=== PATIENT | female | born 2000 | race Caucasian/White ===

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

== ENCOUNTER 2019-01-15 17:27 | Outpatient (CLI) | payer MEDICAID | END 2019-01-15 17:45 | disposition home or self-care (01) | LOC: LDOP 17:27 | PROVIDERS: ATTEND Obstetrics & Gynecology | DX: O26.899 Other specified pregnancy related conditions, unspecified trimester (principal); R55 Syncope and collapse; Z3A.00 Weeks of gestation of pregnancy not specified | CPT/HCPCS: 99201; 99211; G0463 ==

== ENCOUNTER 2019-05-30 09:03 | Inpatient (IN) | payer MEDICAID ==
[~2019-05-30] VITALS: Ht 168.9 cm; Wt 90.0 kg
[2019-05-31] MEDS ORDERED: OXYTOCIN 30U/ 0.9% NaCL 500ML 500 ML IV ONE (05:26)
[2019-05-31] MEDS ORDERED: OXYTOCIN 30U/ 0.9% NaCL 500ML 500 ML IV PRN (05:26)
[2019-05-31] MEDS ORDERED: D5%-LACTATED RINGERS 1,000 ML IV SCH (05:26)
[2019-05-31] MEDS ORDERED: SODIUM CITRATE/CITRIC ACID 30 ML UDC PO PRN (05:30)
[2019-05-31] MEDS ORDERED: ONDANSETRON 2MG/ML, 2ML IVPush PRN ×2 (05:30→21:00)
[2019-05-31] MEDS ORDERED: METOCLOPRAMIDE 5 MG/ML, 2ML IVPush PRN (05:30)
[2019-05-31] MEDS ORDERED: TERBUTALINE 1 MG/ML, 1ML IVPush PRN (05:30)
[2019-05-31] MEDS ORDERED: CALCIUM CARBONATE 500 MG TAB.CHEW PO PRN (05:30)
[2019-05-31] MEDS ORDERED: FENTANYL PF 100 MCG/2ML IV PRN (05:30)
[2019-05-31] MEDS ORDERED: TERBUTALINE 1 MG/ML, 1ML SQ PRN (05:30)
[2019-05-31] MEDS ORDERED: MISOPROSTOL 25 MCG TABLET ONE ×2 (05:31→11:32)
[2019-05-31] MEDS ORDERED: NEWBORN KIT ONE (05:31)
[2019-05-31] MEDS ORDERED: OXYTOCIN 30U/ 0.9% NaCL 500ML 500 ML ONE ×2 (05:32→18:53)
[2019-05-31] MEDS: LACTATED RINGERS 1,000 ML IV SCH ×5 (05:45→23:29)
[2019-05-31] MEDS ORDERED: MISOPROSTOL 25 MCG TABLET VG PRN (06:00)
[2019-05-31 06:01] VITALS: BP 124/81
[2019-05-31 06:05] LABS: BASOPHILS # (AUTO) 0.04 x10^3/uL (0-0.3); BASOPHILS % (AUTO) 0 % (0-1); EOSINOPHILS # (AUTO) 0.14 x10^3/uL (0-0.8); EOSINOPHILS % (AUTO) 1 % (1-7); LYMPHOCYTES # (AUTO) 2.59 x10^3/uL (1-6.1); LYMPHOCYTES % (AUTO) 22 % (22-44); MD NO; MEAN CORPUSCULAR HEMOGLOBIN 30.8 pg (27.0-34.8); MEAN CORPUSCULAR HGB CONC 33.9 g/dL (32.4-35.8); MEAN CORPUSCULAR VOLUME 90.8 fL (80-100); MEAN PLATELET VOLUME 8.4 fL (7.4-10.4); MONOCYTES # (AUTO) 0.79 x10^3/uL (0-1.4); MONOCYTES % (AUTO) 7 % (2-9); NEUTROPHILS # (AUTO) 8.35 x10^3/uL (1.8-8.0); NEUTROPHILS % (AUTO) 70 % (42-75); PLATELET COUNT 241 x10^3/uL (130-400); RED BLOOD COUNT 4.28 x10^6/uL (3.82-5.3)
[2019-05-31] MEDS ORDERED: Iron PO (06:40)
[2019-05-31] MEDS ORDERED: PREN1TAB60 PO (06:40)
[2019-05-31 12:25] LABS: AMPHETAMINE SCREEN, URINE Negative (Negative); BARBITURATE SCREEN, URINE Negative (Negative); BENZODIAZEPINE SCREEN, URINE Negative (Negative); CANNABINOID SCREEN, URINE Negative (Negative); COCAINE SCREEN, URINE Negative (Negative); METHADONE SCREEN, URINE Negative (Negative); OPIATE SCREEN, URINE Negative (Negative)
[2019-05-31] MEDS ORDERED: FENTANYL PF 100 MCG/2ML ONE ×2 (14:06→16:15)
[2019-05-31] MEDS: FENTANYL PF 100 MCG/2ML IVPush PRN ×2 (14:09→16:18)
[2019-05-31] MEDS ORDERED: FENTANYL/BUPIV./NS/PF 250 ML EPIDCONT SCH ×2 (18:13→20:47)
[2019-05-31] MEDS ORDERED: FENTANYL PF 500 MCG, BUPIVACAINE/PF 0.5%, 30ML 62.5 ML in SODIUM CHLORIDE 0.9% 177.5 ML EPIDCONT SCH (18:30)
[2019-05-31] MEDS ORDERED: BUPIVACAINE 0.25% ONE (20:22)
[2019-05-31] MEDS ORDERED: NALOXONE 0.4 MG/ML, 1ML IVPush PRN (21:00)
[2019-05-31] MEDS ORDERED: LACTATED RINGERS 1,000 ML IVBOLUS PRN (21:00)
[2019-05-31] MEDS ORDERED: DIPHENHYDRAMINE 50 MG/ML, 1ML IVPush PRN (21:00)
[2019-05-31] MEDS ORDERED: EPHEDRINE 50 MG/ML, 1ML IVPush PRN (21:00)
[2019-05-31] MEDS ORDERED: TERBUTALINE 1 MG/ML, 1ML ONE (23:40)
[2019-06-01] MEDS: LACTATED RINGERS 1,000 ML IV SCH ×2 (05:26→12:47)
[2019-06-01] MEDS: OXYTOCIN 30U/ 0.9% NaCL 500ML 500 ML IV SCH ×5 (08:36→14:20)
[2019-06-01] MEDS ORDERED: OXYTOCIN 30U/ 0.9% NaCL 500ML 500 ML IV SCH (08:36)
[2019-06-01] MEDS ORDERED: OXYcodone/APAP 5/325MG TABLET PO PRN (09:00)
[2019-06-01] MEDS ORDERED: MISOPROSTOL 200 MCG TABLET PR PRN (09:00)
[2019-06-01] MEDS ORDERED: ACETAMINOPHEN 325 MG TABLET PO PRN ×2 (09:00)
[2019-06-01] MEDS ORDERED: ONDANSETRON 2MG/ML, 2ML IV PRN (09:00)
[2019-06-01] MEDS ORDERED: SIMETHICONE 80 MG CHEW TAB PO PRN (09:00)
[2019-06-01] MEDS ORDERED: CALCIUM CARBONATE 500 MG TAB.CHEW PO PRN (09:00)
[2019-06-01] MEDS ORDERED: OXYTOCIN 30U/ 0.9% NaCL 500ML 500 ML ONE (11:00)
[2019-06-01] MEDS ORDERED: IBUPROFEN 600 MG TABLET ONE (11:04)
[2019-06-01] MEDS: IBUPROFEN 600 MG TABLET PO PRN ×3 (11:05→23:42)
[2019-06-01 14:25] VITALS: BP 127/64
[2019-06-01] MEDS: FENTANYL PF 100 MCG/2ML IVPush PRN (14:29)
[2019-06-01 16:06] LABS: MEAN CORPUSCULAR HEMOGLOBIN 30.6 pg (27.0-34.8); MEAN CORPUSCULAR VOLUME 92.6 fL (80-100); MEAN PLATELET VOLUME 8.1 fL (7.4-10.4); PLATELET COUNT 218 x10^3/uL (130-400); RED BLOOD COUNT 3.78 x10^6/uL (3.82-5.3); RED CELL DISTRIBUTION WIDTH 14.7 % (9.6-15.2)
[2019-06-01 16:31] LABS: MD YES
[2019-06-01 16:33] LABS: <PLATELET ESTIMATE> ADEQUATE; <PLT MORPHOLOGY> NORMAL PLT MORPH; <RBC MORPHOLOGY> NORMAL; BAND#(MANUAL) 0.79 x10^3/uL; BANDS%(MANUAL) 4 % (0-7); LYMPH#(MANUAL) 1.58 x10^3/uL (1-6.1); LYMPHS% (MANUAL) 8 % (22-44); MONOS#(MANUAL) 1.39 x10^3/uL (0.3-2.7); MONOS% (MANUAL) 7 % (2-9); SEG#(MANUAL) 16.04 x10^3/uL (1.8-8); SEGS% (MANUAL) 81 % (42-75)
[2019-06-01] MEDS: PRENATAL VIT/IRON/FA 1 EACH TABLET PO SCH (16:44)
[2019-06-01 16:48] VITALS: BP 110/59
[2019-06-01] MEDS: OXYcodone/APAP 5/325MG TABLET PO PRN ×2 (19:35→23:42)
[2019-06-01 20:00] VITALS: BP 119/68
[2019-06-02] VITALS: BP 106/66
[2019-06-02 04:00] VITALS: BP 112/64
[2019-06-02] MEDS: PRENATAL VIT/IRON/FA 1 EACH TABLET PO SCH (07:29)
[2019-06-02] MEDS: IBUPROFEN 600 MG TABLET PO PRN ×3 (07:29→19:32)
[2019-06-02] MEDS: DOCUSATE 100 MG CAPSULE PO PRN ×2 (07:29→19:32)
[2019-06-02] MEDS: OXYcodone/APAP 5/325MG TABLET PO PRN ×3 (07:30→19:32)
[2019-06-02 09:46] VITALS: BP 117/71
[2019-06-02 19:02] VITALS: BP 128/74
[2019-06-03] MEDS: IBUPROFEN 600 MG TABLET PO PRN ×3 (01:20→14:02)
[2019-06-03] MEDS: OXYcodone/APAP 5/325MG TABLET PO PRN ×3 (01:22→14:02)
[2019-06-03] MEDS: DOCUSATE 100 MG CAPSULE PO PRN (07:36)
[2019-06-03] MEDS: PRENATAL VIT/IRON/FA 1 EACH TABLET PO SCH (07:36)
[2019-06-03 08:05] VITALS: BP 111/72
[2019-06-03] MEDS ORDERED: IBUP-1222 PO (13:21)
[2019-06-03] MEDS ORDERED: OXYC-302 PO (13:22)
[2019-06-03] MEDS ORDERED: DOCU-131 PO (13:24)
== END 2019-06-03 15:40 | disposition home or self-care (01) | DRG 560 ==
LOC: LDIP 05-31 05:23 → 2NE 06-01 11:39 → 2NW 06-01 14:00
PROVIDERS: ADMIT Obstetrics & Gynecology; ATTEND Obstetrics & Gynecology
PROC: 10D07Z6 Extraction of Products of Conception, Vacuum, Via Natural or Artificial Opening (ICD-10-PCS; principal; 2019-06-01)
PROC: 10H07YZ Insertion of Other Device into Products of Conception, Via Natural or Artificial Opening (ICD-10-PCS; 2019-06-01)
PROC: 10907ZC Drainage of Amniotic Fluid, Therapeutic from Products of Conception, Via Natural or Artificial Opening (ICD-10-PCS; 2019-06-01)
PROC: 3E033VJ Introduction of Other Hormone into Peripheral Vein, Percutaneous Approach (ICD-10-PCS; 2019-06-01)
PROC: 0KQM0ZZ Repair Perineum Muscle, Open Approach (ICD-10-PCS; 2019-06-01)
PROC: 3E0P7VZ Introduction of Hormone into Female Reproductive, Via Natural or Artificial Opening (ICD-10-PCS; 2019-06-01)
PROC: 0U7C7ZZ Dilation of Cervix, Via Natural or Artificial Opening (ICD-10-PCS; 2019-06-01)
PROC: 3E0R3BZ Introduction of Anesthetic Agent into Spinal Canal, Percutaneous Approach (ICD-10-PCS; 2019-06-01)
PROC: 00HU33Z Insertion of Infusion Device into Spinal Canal, Percutaneous Approach (ICD-10-PCS; 2019-06-01)
DX: O76 Abnormality in fetal heart rate and rhythm complicating labor and delivery (principal); O99.354 Diseases of the nervous system complicating childbirth; Z37.0 Single live birth; O70.1 Second degree perineal laceration during delivery; Z3A.39 39 weeks gestation of pregnancy; G40.909 Epilepsy, unspecified, not intractable, without status epilepticus; G43.909 Migraine, unspecified, not intractable, without status migrainosus
CPT/HCPCS: 36415; 80307; 82803; 85025; 86592; 86850; 86900; G0378; J3010; J2590; J7050; J7120